=== PATIENT | male | born 1940 | race Caucasian/White ===

== ENCOUNTER 2016-08-18 06:17 | Observation (INO) | payer MEDICARE ==
[~2016-08-18] VITALS: Ht 172.7 cm; Wt 120.5 kg
[2016-08-18 06:25] VITALS: BP 157/80; PULSE 83; RESP 17; O2SAT 96
--- NOTE | 2016-08-18 06:28 | ED.REPORT ---
HPI-URI / Cough / Cold Date of Service Aug 18, 2016 ED Provider: Alton Vences MD 76 y/o male with a hx of A-fib (on Warfarin), HTN and hyperlipidemia presents to the ED via EMS complaining of raspy cough, onset two days ago. The pt states it got significantly worse last night. Associated sx include SOB with a coughing episode. He denies change in appetite, lower extremity edema and hx of pneumonia or other lung problems. The pt took a cough syrup this morning with no change in his sx. Nursing Notes Stated Complaint: RUNNY NOSE,COUGH Chief Complaint: Respiratory Complaints Nursing Notes Reviewed: Yes (Cartilix, meds not reconciled) Allergies: Uncoded Allergies: BEE STINGS (Allergy, Severe, eyes swell shut, 08/18/16) General Time Seen by MD: 06:17 Chief Complaint Cough, non-productive Hx Obtained From: Patient Arrived By: Ambulance Onset Occurred: 2 days ago Symptom Duration: Since onset Severity: Current: No pain currently Severity: Maximum: No pain Recent Healthcare: No recent doctor visit Similar Sx Previous: No Past Medical History Past Medical History Notes: PCP: Dr. Madyson Rae, Lora Ellis Past Medical History atrial fibrillation (on Warfarin) Reports: Hyperlipidemia, Hypertension Past Surgical History Knee replacement Reports: Tonsillectomy Smoking History Former Smoker Social History Alcohol Use: "Social" Ambulatory Status Independent Review of Systems Denies: change in appetite Respiratory: Reports: Non-productive cough (raspy cough), Shortness of breath Complete sys rev & neg: except as marked. Cardiovascular: Denies: Edema Physical Exam Initial Vital Signs Vital Signs (First) Date Time Temp Pulse Resp B/P Pulse Ox O2 Delivery O2 Flow Rate FiO2 08/18/16 06:25 39.0 83 17 157/80 96 Room Air Initial VS: Reviewed, Unavailable (none on chart, ordered), Vital signs abnormal (fever) Head / Eyes: Atraumatic, Normocephalic Neck: Supple, Non-tender, Full range of motion Cardiovascular: Regular rate & rhythm, Heart sounds normal, Intact distal pulses Abdomen / GI: Soft, Non-tender Extremities: Vascular intact, Neuro intact, No tenderness Skin: Warm, Dry, No cyanosis Neurologic: Alert, Oriented, Nonfocal General/Constitutional: Awake, Alert, No acute distress, Well appearing, Cooperative, Not toxic appearing ENT: Atraumatic, Pharynx NL Respiratory / Chest: Atraumatic, Breath sounds = bilat, No rales, No wheezing Diffuse scattered rhonchi. Cardiovascular: Heart rate NL, Regular rhythm, Heart sounds NL, No gallop, No murmurs, No rubs Chronic trace edema at the ankles. Interpretation & Diagnostics Lab Results Interpretation Result Diagram: 08/18/16 0635 08/18/16 0635 Test 08/18/16 06:35 08/18/16 07:18 08/18/16 08:19 White Blood Count 11.4th/mm3 (3.8-10.1) Red Blood Count 5.62mil/mm3 (4.40-5.80) Hemoglobin 16.3g/dL (13.8-17.2) Hematocrit 48.5% (41.0-50.0) Mean Corpuscular Volume 86.3fL (81-100) Mean Corpuscular Hemoglobin 29.0pg (27.0-35.0) Mean Corpuscular Hemoglobin Concent 33.6% (32.0-37.0) Red Cell Distribution Width 15.9% (12.3-15.4) Platelet Count 180bil/L (150-400) Neutrophils (%) (Auto) 78.0% (40-74) Lymphocytes (%) (Auto) 9.7% (14-46) Monocytes (%) (Auto) 9.2% (4-12) Eosinophils (%) (Auto) 2.6% (0-5) Basophils (%) (Auto) 0.2% (0-3) Sodium Level 136mEq/L (134-144) Potassium Level 4.3mEq/L (3.5-5.2) Chloride Level 99mEq/L (97-108) Carbon Dioxide Level 22mmol/L (18-29) Blood Urea Nitrogen 18mg/dL (8-27) Creatinine 0.80mg/dL (0.76-1.27) Estimat Glomerular Filtration Rate 100mL/min (>59) Glucose Level 120mg/dL (60-99) Calcium Level 9.5mg/dL (8.5-10.1) Total Bilirubin 0.8mg/dL (0.0-1.2) Aspartate Amino Transf (AST/SGOT) 25U/L (0-50) Alanine Aminotransferase (ALT/SGPT) 25U/L (0-44) Alkaline Phosphatase 73U/L (25-160) Troponin T 0.010ug/L (0.0-0.011) Pro-B-Type Natriuretic Peptide 807.0pg/mL (0-486) Total Protein 7.3g/dL (6.4-8.4) Albumin 4.2g/dL (3.4-5.0) Prothrombin Time 52.2sec (8.1-12.5) Prothromb Time International Ratio 4.73ratio Urine Color Yellow (YELLOW) Urine Appearance Hazy (CLEAR,HAZY) Urine pH 6.5 (5.0-8.0) Urine Specific [place] 1.015 (1.003-1.035) Urine Protein Tracemg/dL (NEG,TRACE) Urine Glucose (UA) Negativemg/dL (NEGATIVE) Urine Ketones Negativemg/dL (NEGATIVE) Urine Occult Blood Small (NEGATIVE) Urine Nitrite Negative (NEGATIVE) Urine Bilirubin Negative (NEGATIVE) Urine Urobilinogen Normalmg/dL (NORMAL) Urine Leukocyte Esterase Negative (NEGATIVE) Urine RBC 0-2/hpf (0-2) Urine WBC 0-5/hpf (0-5) Urine Epithelial Cells Occasional/hpf (NONE-MOD) Urine Crystals None seen (NONE SEEN) Urine Hyaline Casts None/lpf (NONE) Urine Granular Casts None seen (NONE SEEN) Urine Waxy Casts None seen (NONE SEEN) Urine Red Blood Cell Casts None seen (NONE SEEN) Urine White Blood Cell Casts None seen (NONE SEEN) Urine Mucus None seen (None Seen) Urine Trichomonas None seen (NONE SEEN) Urine Yeast None (NONE SEEN) Urinalysis Comment None Urine Culture Reflexed Not indicated Lab Results Interpretation: CBC positive leukocytosis CMP normal BNP marginally elevated Supratherapeutic INR UA pending Blood culture pending Lactic acid ECG Interpretation ECG Interpretation: Rate controlled A-fib. Rate 79. Q waves inferiorly No acute ischemic changes Time: 06:30 Interpreted by: ED physician X-Ray Chest Interpretation Chest Xray Interpretation: Result: Pneumonia View: Portable, 1 view Interpretation / Wet Read by: Wet read ED physician Re-Eval/Medical Decision Med Decision/Clinical Course This is a pleasant 76-year-old male reports he felt poorly yesterday, then last evening developed fevers, body chills, and a terrible cough with some mild shortness of breath. Given the severity of symptoms and weakness, he called 911 and was transported. On arrival he is febrile, but not tachycardic, hypoxic , or respiratory distress. He does have a cough, and scattered rhonchi. He has trace edema that the lower extremities which he reports is chronic. He does have a chronic history of atrial fibrillation and is on warfarin. CXR reveals a pneumonia, but reveals moderate leukocytosis, and also reveals he is not supratherapeutic on his INR. Blood cultures are pending. The patient received ceftriaxone and azithromycin for community acquired pneumonia. He also received Tylenol, gentle fluids. On reexamination he appears fairly well-he is not tachycardic or hypoxic, so I discussed the possibility of discharge and outpatient treatment, however the patient reports he just feels really lousy, he does not feel comfortable being discharged home. Given his age, comorbidities, over anticoagulation, it is reasonable for him to be admitted for inpatient treatment. This point he has no signs of hemorrhage, and his warfarin will be held Source of Hx: Old records, EMS Re-Evaluation/Progress : Time of Eval: 08:02 Patient Status: Mild relief Re-Evaluation/Progress Note: Rechecked pt. Discussed lab results, imaging results, diagnosis and plan to admit. Pt understands and agrees with the plan for admission. All questions addressed. Consultation : Referral / Consult Name: Kenji Amaral MD Consulted With: Hospitalist Call Returned at: 09:10 Operations Research Analyst: Will see patient, Agrees with eval, Agrees with plan, Accepts admit Counseled Regarding: Diagnosis, Lab results, Need for admission Discharge & Departure Impression: Primary Impression: Pneumonia Pneumonia type: due to unspecified organism Laterality: right Lung location : lower lobe of lung Qualified Code: J18.1 - Lobar pneumonia, unspecified organism Additional Impression: Supratherapeutic INR Disposition: ADMITTED TO HOSPITAL Discharge Condition All VS Reviewed: Yes Condition: Stable Referrals: OTHER,PHYSICIAN Scribe Attestation Portions of this note were transcribed by Charanjit Honeycutt. I, , personally performed the history, physical exam and medical decision- making;I reviewed and confirmed the accuracy of the information in the transcribed note. Signed by Alvin Bales. 08/18/16 09:09 Alton Vences MD Aug 18, 2016 06:28 Charanjit Honeycutt Aug 18, 2016 07:01
[2016-08-18] MEDS ORDERED: cefTRIAXone Inj 2,000 MG in Dextrose 5% Minibag Plus 50 ML IV ONE (07:30)
[2016-08-18] MEDS ORDERED: Azithromycin Inj 500 MG in Dextrose 5% w/Vial Mate 250 ML IV ONE (07:30)
[2016-08-18 07:40] LABS: BASOPHILS % (AUTO) 0.2 % (0-3); EOSINOPHILS % (AUTO) 2.6 % (0-5); MONOCYTES % (AUTO) 9.2 % (4-12); Mean Corpuscular Volume 86.3 fL (81-100); Platelet Count 180 bil/L (150-400)
[2016-08-18 07:43] VITALS: BP 150/87; PULSE 81; RESP 23; O2SAT 95
[2016-08-18 08:01] LABS: INR 4.73 ratio
[2016-08-18 08:05] LABS: TROPONIN T 0.01 ug/L (0.0-0.011)
--- NOTE | 2016-08-18 08:53 | DRSVH ---
PROCEDURE: X-RAY CHEST, TWO VIEWS ([id number]) INDICATIONS: Fever/SOB TECHNIQUE: 2 views of the chest were acquired. COMPARISON: None. FINDINGS: Surgical changes and devices: None. Lungs and pleura: Developing a infrahilar airspace disease is present bilaterally. No pleural effusi on or pneumothorax is identified. There may be mild pleural thickening on the right. Mediastinum: Mediastinal contours are normal. Heart size is normal. It appears to be mild aortic a therosclerosis. Bones and chest wall: No suspicious bony abnormalities. Mild/moderate degenerative changes of the i amanda spine are noted. Soft tissues appear unremarkable. IMPRESSION: Bilateral infrahilar developing airspace disease is most suggestive of pneumonia. Please correlate clinically. Dictated by: Minh Nuñez M.D. on 08/18/2016 at 8:51 Approved by: Minh Nuñez M.D. on 08/18/2016 at 8:52
[2016-08-18] MEDS ORDERED: Ondansetron 2 mg/mL 2 mL Inj IVPUSH PRN (09:10)
[2016-08-18 09:19] LABS: APPEARANCE,URINE HAZY (CLEAR,HAZY); COLOR,URINE YELLOW (YELLOW); OCCULT BLOOD,URINE SMALL (NEGATIVE); PH,URINE 6.5 (5.0-8.0); UROBILINOGEN,URINE NORMAL (NORMAL)
[2016-08-18 10:00] VITALS: BP 127/70; PULSE 81; RESP 18; O2SAT 95
[2016-08-18] MEDS: cefTRIAXone Inj 2,000 MG in Dextrose 5% Minibag Plus 50 ML IV SCH (11:08)
--- NOTE | 2016-08-18 11:22 | PCM.HPMED ---
Subjective Date of Service Aug 18, 2016 Primary Provider: Admitting Physician: Kenji Amaral MD Primary Care Physician: Lora Francisco Attending Physician: Kenji Amaral MD Chief Complaint: Difficulty breathing, cough, phlegm, chills History of Present Illness: 76-year-old male with atrial fibrillation on Coumadin for 5 years, hypertension , hyperlipidemia presented with 2 days of productive cough, difficulty breathing , chills. Patient was usual state of health until 2 days ago, did not recall any sick contact, no recent travel. Patient had no problem breathing nor cough, had remote history of smoking 40 years ago, can walk more than one block without any breathing problem. Then patient started having mild cough, white phlegm, but the past 2 days, cough and sputum are getting worse more purulent. Last night, patient noticed severe chills and shaking, worsening cough, decided to come to the hospital In the emergency room blood pressure were stable [id number], 83, 17, 96% onRA, febrile to39, CXR showed Bilateral infrahilar developing airspace disease suggestive of PNA. labs showed elevated white blood cells, PCT 0.09. pt received azithromycin and ceftriaxone ROS: Patient denied chest pain, n/v/c/d, rash, CARTY, dizziness, myalgia, arthralgia Allergies Uncoded Allergies: BEE STINGS (Allergy, Severe, eyes swell shut, 08/18/16) PMH As described above in history of present illness Surgical History Left knee replacement Family History No history of CAD Social History Hx Alcohol Use: Yes (socially) Hx Substance Use: No Smoking Status: Former Smoker Additional Information lives alone Exam Vital Signs Vital Sign - Last Date Time Temp Pulse Resp B/P Pulse Ox O2 Delivery O2 Flow Rate FiO2 08/18/16 07:43 81 23 150/87 95 Room Air 08/18/16 06:25 39.0 Exam NAD, comfortably laying down on the bed no JVD, MMM, no LAD RRR, nl s1, s2 no mrg Decreased breathing sounds at bilateral bases, mild wheezing S,ND,NT,normoactive BS+ warm, no edema, pulses 2/2 Lab and Diagnostics Result Diagram: 08/18/16 0635 08/18/16 0635 X-Rays, CTs and MRIs PROCEDURE: X-RAY CHEST, TWO VIEWS ([id number]) INDICATIONS: Fever/SOB TECHNIQUE: 2 views of the chest were acquired. COMPARISON: None. FINDINGS: Surgical changes and devices: None. Lungs and pleura: Developing a infrahilar airspace disease is present bilaterally. No pleural effusion or pneumothorax is identified. There may be mild pleural thickening on the right. Mediastinum: Mediastinal contours are normal. Heart size is normal. It appears to be mild aortic atherosclerosis. Bones and chest wall: No suspicious bony abnormalities. Mild/moderate degenerative changes of the imaged spine are noted. Soft tissues appear unremarkable. IMPRESSION: Bilateral infrahilar developing airspace disease is most suggestive of pneumonia. Please correlate clinically. Dictated by: Minh Nuñez M.D. on 08/18/2016 at 8:51 Approved by: Minh Nuñez M.D. on 08/18/2016 at 8:52 Assessment & Plan Acute, active Productive cough fever, POA, CXR suggestive of PNA, CURB65+1 from age, pt looked well, respiratory status stable on room air. strep Ag/legionella Ag neg -Continue ceftriaxone and azithromycin IV, likely to transtion to oral on d/c -trend fever curve, PCT, wbc -infectious w/u: resp PCR, sputum CX, BCX -O2 supplement prn Chronic, stable afib on AC, INR>4, no bleeding episode ever, will hold Coumadin, telemetry HTN, continue home bp med HLD, continue statin Dispo: Patient is admitted under observation status with expectation that she will be discharged within 24-48 hours, diet:general dvt ppx:HSQ Full code Time spent 65min Kenji Amaral MD Aug 18, 2016 11:22
[2016-08-18] MEDS ORDERED: COLC0.6C3 PO (12:05)
[2016-08-18] MEDS ORDERED: LOSA100T29 PO (12:07)
[2016-08-18] MEDS ORDERED: SIMV80TA4 PO (12:10)
[2016-08-18] MEDS ORDERED: METO25TA99 PO (12:10)
[2016-08-18] MEDS ORDERED: WARF5TAB7 PO (12:10)
[2016-08-18] MEDS ORDERED: ALLO300T2 PO (12:10)
[2016-08-18 15:25] VITALS: BP 163/92; PULSE 77; RESP 24; O2SAT 96
[2016-08-18 17:28] VITALS: PULSE 73
--- NOTE | 2016-08-18 18:21 | NUR ---
Admit to MOC Pt. admitted to unit at 0950 in stable condition. 96% on RA. Denies SOB at this time. Becomes SOB with activity. Lungs coarse with audible wheezes. Mildly febrile with temp of 37.6. Will continue to monitor. Med req and admit questions completed. Pt. placed in droplet precautions r/t diagnosis of rhino virus.
[2016-08-18 20:00] VITALS: BP 149/78; PULSE 68; PULSE 74; RESP 20; O2SAT 96
[2016-08-19 00:37] VITALS: BP 130/80; PULSE 60; RESP 20; O2SAT 97
--- NOTE | 2016-08-19 03:44 | NUR ---
Activity Pt. ambulatory, encouraged SBA for safety, cooperative to staff and care, no discomfort voiced this shift, vitals stable, continues on droplet precaution r/t rhinovirus, on continuous tele monitoring A-fib 70s per conveyor monitor, vitals stable, afebrile, call light within reach, hourly rounds, will continue to monitor.
[2016-08-19 05:40] VITALS: BP 152/90; PULSE 60; RESP 19; O2SAT 100
[2016-08-19 06:03] LABS: BASOPHILS % (AUTO) 0.4 % (0-3); EOSINOPHILS % (AUTO) 6.7 % (0-5); MONOCYTES % (AUTO) 14.2 % (4-12); Mean Corpuscular Hemoglobin 29.1 pg (27.0-35.0); Mean Corpuscular Volume 87.4 fL (81-100); NEUTROPHILS % (AUTO) 56.7 % (40-74); Platelet Count 163 bil/L (150-400)
[2016-08-19 06:29] LABS: Magnesium 1.8 mg/dL (1.6-2.6)
[2016-08-19] MEDS ORDERED: LEVO750T9 PO (07:30)
[2016-08-19 08:19] LABS: INR 1.95 ratio
[2016-08-19] MEDS ORDERED: Azithromycin Inj 500 MG in Dextrose 5% w/Vial Mate 250 ML IV SCH (08:30)
[2016-08-19] MEDS ORDERED: Albuterol 2.5 mg/3 mL Inhalation Solution NEB ONE (08:50)
[2016-08-19] MEDS ORDERED: ALBU18HF INH (08:50)
[2016-08-19] MEDS ORDERED: Albuterol 2.5 mg/3 mL Inhalation Solution NEB PRN (08:50)
[2016-08-19 09:20] VITALS: BP 147/88; PULSE 62; RESP 20; O2SAT 97
[2016-08-19 09:32] VITALS: PULSE 59; RESP 16; O2SAT 98
[2016-08-19 09:54] VITALS: PULSE 70
[2016-08-19] MEDS: cefTRIAXone Inj 2,000 MG in Dextrose 5% Minibag Plus 50 ML IV SCH (10:58)
--- NOTE | 2016-08-19 11:10 | NUR ---
Social Work: Initial Assessment D: Per EMR review, pt is a 76 year old male admitted for pneumonia. Pt is Medicare with AARP supplement; pt has no LTC insurance or VA benefits. PCP is through the [facility]. NOK is Taj Mcfarlane, son, . Advance directives requested by LAB SUPPORT TECH for chart. No RA score entered. LAB SUPPORT TECH met with pt and son at bedside. Sw role and contact info provided. See initial assessment- discharge planning introduced. Pt lives in a single story senior group home home in [place]. Pt is I with ADLs at baseline, uses no DME and continues to drive. Pt has a history of HH through [facility] after a knee replacement. Pt has never required skilled rehab. Pt and son express no concerns about discharge home when medically stable; pt's son will transport and assist pt post discharge. Pt has been ambulating I during admission. A: Pt who is I at baseline. P: Anticipate pt to discharge home via POV and no sw needs once medically stable; LAB SUPPORT TECH to continue to follow if needs arise. ZAFAR Jo Addendum: 08/19/16 at 1114 by AMANDEEP GUZMÁN Amended: Links added.
[2016-08-19 12:40] VITALS: BP 153/87; PULSE 59; O2SAT 97
--- NOTE | 2016-08-19 13:11 | PCM.DIMED ---
Discharge Instructions Date of Service Aug 19, 2016 Dates of Hospitalization Aug 18, 2016 at 09:16 Discharge Diagnosis Discharge Diagnosis bronchitis with Rhinovirus infection, probable superimposed community acquired pneumonia. Medication Instructions Additional med instructions Please continue to take Levofloxacin 750mg daily for 8more days, Please use albuterol inhaler every 2-4hours as needed if you feel shortness or breath Diet Discharge Diet: No restrictions Activity Discharge Activity: No restrictions Call your provider Call your provider for: Shortness of breath Patient Instructions Patient Instructions You were hospitalized with productive cough, suggestive of pneumonia. You were found to have viral infection. chest xray also suggested bacterial pneumonia. You were treated with antibiotics, responded well. please follow medicine instruction as above and follow up with your doctor in 2weeks Follow-up plan Please follow up with your doctor in 2weeks Follow-up with PCP in: 2 weeks Kenji Amaral MD Aug 19, 2016 10:32
--- NOTE | 2016-08-19 14:24 | NUR ---
Case Management: Medicare PHIPPS and Medicare D brochure presented to patient with explanation. Signed PHIPPS at [id number], original to patient's chart - copy to patient. Melina Barbosa RN
--- NOTE | 2016-08-19 14:36 | NUR ---
Discharge Reviewed DC instructions with patient and son. Answered all questions, stated understanding. all belongings taken. Scripts sent in packet. Taken in w/ch to private vehicle to home.
--- NOTE | 2016-08-21 13:24 | PCM.DC.MED ---
Discharge Summary Date of Service Aug 19, 2016 Dates of Hospitalization Date of Hospital Admission Aug 18, 2016 at 09:16 Date of Discharge: Aug 19, 2016 Providers: Admitting Physician: Raj Renee MD Primary Care Physician: Lora Francisco Attending Physician: Raj Renee MD Diagnosis at Time of Discharge Diagnosis at Time of Discharge Bronchitis with Rhinovirus infection, probable superimposed community acquired pneumonia. Procedures XRay, CTs & MRIs PROCEDURE: X-RAY CHEST, TWO VIEWS ([id number]) INDICATIONS: Fever/SOB TECHNIQUE: 2 views of the chest were acquired. COMPARISON: None. FINDINGS: Surgical changes and devices: None. Lungs and pleura: Developing a infrahilar airspace disease is present bilaterally. No pleural effusion or pneumothorax is identified. There may be mild pleural thickening on the right. Mediastinum: Mediastinal contours are normal. Heart size is normal. It appears to be mild aortic atherosclerosis. Bones and chest wall: No suspicious bony abnormalities. Mild/moderate degenerative changes of the imaged spine are noted. Soft tissues appear unremarkable. IMPRESSION: Bilateral infrahilar developing airspace disease is most suggestive of pneumonia. Please correlate clinically. Dictated by: Minh Nuñez M.D. on 08/18/2016 at 8:51 Approved by: Minh Nuñez M.D. on 08/18/2016 at 8:52 Brief History HPI obtained on 08/18 76-year-old male with atrial fibrillation on Coumadin for 5 years, hypertension , hyperlipidemia presented with 2 days of productive cough, difficulty breathing , chills. Patient was usual state of health until 2 days ago, did not recall any sick contact, no recent travel. Patient had no problem breathing nor cough, had remote history of smoking 40 years ago, can walk more than one block without any breathing problem. Then patient started having mild cough, white phlegm, but the past 2 days, cough and sputum are getting worse more purulent. Last night, patient noticed severe chills and shaking, worsening cough, decided to come to the hospital In the emergency room blood pressure were stable [id number], 83, 17, 96% onRA, febrile to39, CXR showed Bilateral infrahilar developing airspace disease suggestive of PNA. labs showed elevated white blood cells, PCT 0.09. pt received azithromycin and ceftriaxone ROS: Patient denied chest pain, n/v/c/d, rash, CARTY, dizziness, myalgia, arthralgia Hospital Course Acute dx Bronchitis with Rhinovirus infection, probable superimposed community acquired pneumonia. Productive cough fever, CXR suggestive of PNA, CURB65+1 from age, pt was not septic, looked well, respiratory status stable on room air. strep Ag/legionella Ag neg. BCX ngtd. resp PCR showed Rhino virus. pt was empirically started on ceftriaxone and azithromycin IV, switched to oral Levaquin on d/c. Since pt showed some bronchospasm, albuterol inh was given as well. Chronic dx afib on AC, INR>4, held Coumadin, INR 1.95 on d/c, resumed Coumadin HTN, continued home BP med HLD, continued statin Exam Vital Signs (Last) Date Time Temp Pulse Resp B/P Pulse Ox O2 Delivery O2 Flow Rate FiO2 08/19/16 12:40 36.8 59 153/87 97 Room Air 08/19/16 09:32 16 Exam NAD, comfortably laying down on the bed no JVD, MMM, no LAD RRR, nl s1, s2 no mrg Decreased breathing sounds at bilateral bases, mild wheezing S,ND,NT,normoactive BS+ warm, no edema, pulses 2/2 Test 08/18/16 06:35 08/18/16 07:18 08/18/16 07:35 08/18/16 08:19 Troponin T 0.010ug/L (0.0-0.011) Pro-B-Type Natriuretic Peptide 807.0pg/mL (0-486) Lactic Acid Level 1.7mmol/L (0.4-2.0) Procalcitonin 0.09ng/mL (0.00-0.08) Urine Legionella pneumophilia Ag Negative (Negative) Urine Color Yellow (YELLOW) Urine Appearance Hazy (CLEAR,HAZY) Urine pH 6.5 (5.0-8.0) Urine Specific [place] 1.015 (1.003-1.035) Urine Protein Tracemg/dL (NEG,TRACE) Urine Glucose (UA) Negativemg/dL (NEGATIVE) Urine Ketones Negativemg/dL (NEGATIVE) Urine Occult Blood Small (NEGATIVE) Urine Nitrite Negative (NEGATIVE) Urine Bilirubin Negative (NEGATIVE) Urine Urobilinogen Normalmg/dL (NORMAL) Urine Leukocyte Esterase Negative (NEGATIVE) Urine RBC 0-2/hpf (0-2) Urine WBC 0-5/hpf (0-5) Urine Epithelial Cells Occasional/hpf (NONE-MOD) Urine Crystals None seen (NONE SEEN) Urine Bacteria None/hpf (NONE-FEW) Urine Hyaline Casts None/lpf (NONE) Urine Granular Casts None seen (NONE SEEN) Urine Waxy Casts None seen (NONE SEEN) Urine Red Blood Cell Casts None seen (NONE SEEN) Urine White Blood Cell Casts None seen (NONE SEEN) Urine Mucus None seen (None Seen) Urine Trichomonas None seen (NONE SEEN) Urine Yeast None (NONE SEEN) Urinalysis Comment None Urine Culture Reflexed Not indicated Test 08/19/16 05:25 08/19/16 07:40 White Blood Count 7.0th/mm3 (3.8-10.1) Red Blood Count 4.99mil/mm3 (4.40-5.80) Hemoglobin 14.5g/dL (13.8-17.2) Hematocrit 43.6% (41.0-50.0) Mean Corpuscular Volume 87.4fL (81-100) Mean Corpuscular Hemoglobin 29.1pg (27.0-35.0) Mean Corpuscular Hemoglobin Concent 33.3% (32.0-37.0) Red Cell Distribution Width 16.0% (12.3-15.4) Platelet Count 163bil/L (150-400) Neutrophils (%) (Auto) 56.7% (40-74) Lymphocytes (%) (Auto) 21.7% (14-46) Monocytes (%) (Auto) 14.2% (4-12) Eosinophils (%) (Auto) 6.7% (0-5) Basophils (%) (Auto) 0.4% (0-3) Sodium Level 139mEq/L (134-144) Potassium Level 4.1mEq/L (3.5-5.2) Chloride Level 101mEq/L (97-108) Carbon Dioxide Level 26mmol/L (18-29) Blood Urea Nitrogen 15mg/dL (8-27) Creatinine 0.71mg/dL (0.76-1.27) Estimat Glomerular Filtration Rate 115mL/min (>59) Glucose Level 103mg/dL (60-99) Calcium Level 9.0mg/dL (8.5-10.1) Phosphorus Level 3.0mg/dL (2.5-4.9) Magnesium Level 1.8mg/dL (1.6-2.6) Total Bilirubin 0.5mg/dL (0.0-1.2) Aspartate Amino Transf (AST/SGOT) 21U/L (0-50) Alanine Aminotransferase (ALT/SGPT) 20U/L (0-44) Alkaline Phosphatase 56U/L (25-160) Total Protein 5.8g/dL (6.4-8.4) Albumin 3.7g/dL (3.4-5.0) Prothrombin Time 21.1sec (8.1-12.5) Prothromb Time International Ratio 1.95ratio Discharge Medications Discharge Medications Allopurinol (Allopurinol) 300 Mg Tablet 300 MG PO DAILY (Reported) Levofloxacin (Levaquin) 750 Mg Tablet 750 MG PO DAILY Prescribed by: RAJ RENEE MD Losartan Potassium (Losartan Potassium) 100 Mg Tablet 100 MG PO DAILY (Reported ) Metoprolol Succinate ER (Metoprolol Succinate ER) 25 Mg Tab.er.24h 25 MG PO DAILY (Reported) Simvastatin (Simvastatin) 80 Mg Tablet 80 MG PO HS (Reported) Warfarin Sodium (Warfarin Sodium) 5 Mg Tablet 5 MG PO DAILY (Reported) As needed Albuterol Sulfate (Ventolin HFA Inhaler) 200 Puff/18 Gm Inhaler 1 PUFF INH Q4 PRN PRN For Wheezing Prescribed by: RAJ RENEE MD Colchicine (Colchicine) 0.6 Mg Capsule 0.6 MG PO PRN For gout attack (Reported) Additional med instructions Please continue to take Levofloxacin 750mg daily for 8more days, Please use albuterol inhaler every 2-4hours as needed if you feel shortness or breath Followup Plan Disposition: home Follow-up plan Please follow up with your doctor in 2weeks Discharge Diet: No restrictions Discharge Activity: No restrictions Patient Instructions You were hospitalized with productive cough, suggestive of pneumonia. You were found to have viral infection. chest xray also suggested bacterial pneumonia. You were treated with antibiotics, responded well. please follow medicine instruction as above and follow up with your doctor in 2weeks Follow-up with PCP in: 2 weeks Time spent 65min Raj Renee MD Aug 19, 2016 16:54
== END 2016-08-19 14:15 | disposition home or self-care (01) ==
LOC: SED 06:17 → MOC 09:16 → INTOOBSV 09:16 → MOC 10:02
PROVIDERS: ADMIT Internal Medicine; ATTEND Internal Medicine
DX: J20.6 Acute bronchitis due to rhinovirus (principal); I48.91 Unspecified atrial fibrillation; R79.1 Abnormal coagulation profile; E78.5 Hyperlipidemia, unspecified; I10 Essential (primary) hypertension; Z79.01 Long term (current) use of anticoagulants; Z87.891 Personal history of nicotine dependence
CPT/HCPCS: 36415; 71020; 80053; 81000; 83605; 83735; 83880; 84100; 84145; 84484; 85025; 85610; 86403; 87040; 87070; 87205; 87449; 87633; 93005; 94664; 96365; 96366; 96367; 99285; G0378; J0456; J0696; J7613

== ENCOUNTER 2016-09-03 02:33 | Inpatient (IN) | payer MEDICARE ==
[2016-09-03] VITALS (8 sets, daily range): BP systolic 106–147; BP diastolic 54–90; PULSE 64–83; RESP 16–19; O2SAT 93–98
[~2016-09-03] VITALS: Ht 170.2 cm; Wt 122.6 kg
[~2016-09-03 02:33] MED LIST: ALBU18HF INH; ALLO300T2 PO; COLC0.6C3 PO; LEVO750T9 PO; LOSA100T29 PO; METO25TA99 PO; SIMV80TA4 PO; WARF5TAB7 PO
--- NOTE | 2016-09-03 02:37 | ED.REPORT ---
HPI-General Illness Date of Service Sep 03, 2016 ED Provider: Dr. Donohue 76 y/o male with a hx of A-fib (on Warfarin) and HTN presents to the ED via EMS complaining of right knee pain and swelling post a ground level fall just prior to arrival. The pt states he was walking to the bathroom when he "just went down ". The pt did not hit his head or lose consciousness. He also denies vomiting, nausea, chest pain, shortness of breath and abdominal pain. Nursing Notes Stated Complaint: GLF/R KNEE PAIN Chief Complaint: Extremity Trauma Nursing Notes Reviewed: Yes Allergies: Uncoded Allergies: BEE STINGS (Allergy, Severe, eyes swell shut, 08/18/16) Scheduled Allopurinol (Allopurinol) 300 Mg Tablet 300 MG PO DAILY Levofloxacin (Levaquin) 750 Mg Tablet 750 MG PO DAILY Metoprolol Succinate ER (Metoprolol Succinate ER) 25 Mg Tab.er.24h 25 MG PO DAILY Simvastatin (Simvastatin) 80 Mg Tablet 80 MG PO HS Warfarin Sodium (Warfarin Sodium) 5 Mg Tablet 5 MG PO DAILY Scheduled PRN Albuterol Sulfate (Ventolin HFA Inhaler) 200 Puff/18 Gm Inhaler 1 PUFF INH Q4 PRN PRN For Wheezing Colchicine (Colchicine) 0.6 Mg Capsule 0.6 MG PO PRN For gout attack General Time Seen by MD: 02:36 Chief Complaint Other (right knee pain) Hx Obtained From: Patient Arrived By: Ambulance Sudden in Onset?: Yes Onset Occurred: Just prior to arrival Symptom Duration: Since onset Caused by: Fall on ground Location: : Knee right Quality: Painful Radiation: : Does not radiate Severity: Current: Severe Severity: Maximum: Severe Recent Healthcare: Recent doctor visit Similar Sx Previous: No Past Medical History Past Medical History Notes: PCP: Ainsley Segura Past Medical History On Warfarin atrial fibrillation Hypertension Hyperlipidemia Past Surgical History Knee replacement Tonsillectomy Smoking History Former Smoker Social History Alcohol Use: "Social" Ambulatory Status Independent Review of Systems Full Review of Systems Respiratory: Denies: Shortness of breath Cardiovascular: Denies: Chest pain GI: Denies: Abdominal pain, Nausea, Vomiting Musculoskeletal: Reports: Extremity pain (right knee), Extremity swelling ( right knee) Neurologic: Denies: Change LOC Complete sys rev & neg: except as marked. Physical Exam Vital Signs Initial VS: Reviewed Head / Eyes: Atraumatic, Normocephalic, PERRL Neck: Supple, Non-tender, Full range of motion Respiratory: Breath sounds normal, Clear to auscultation, No respiratory distress Cardiovascular: Regular rate & rhythm, Heart sounds normal, Intact distal pulses Abdomen / GI: Soft, Non-tender Skin: Warm, Dry, No cyanosis Neurologic: Alert, Oriented, Nonfocal General/Constitutional: Awake, Alert, Cooperative Appearance / Presentation: Positive: Obese Upper Extremities Upper Extremity / MS: Atraumatic, Full range of motion, No swelling, No erythema, No deformity, Neurologic intact, Vascular intact Lower Extremity / Pelvis / MS: No erythema, Neurologic intact, Vascular intact Right Knee: Positive: Joint effusion present, Swelling present... (Severe), Tenderness present... (Severe, to minimum movement) Floating knee cap. Interpretation & Diagnostics Exam: CT right femur without contrast Conclusion: Comminuted fracture involving the mid-to distal diaphysis of the femur. Right knee joint osteoarthritis. Knee joint effusion. Signed by Dr. Jesu Horowitz 09/03/16 05:36 Lab Results Interpretation Test 09/03/16 03:35 09/03/16 03:55 White Blood Count 17.7th/mm3 (3.8-10.1) Red Blood Count 5.44mil/mm3 (4.40-5.80) Mean Corpuscular Volume 85.5fL (81-100) Mean Corpuscular Hemoglobin 29.4pg (27.0-35.0) Mean Corpuscular Hemoglobin Concent 34.4% (32.0-37.0) Red Cell Distribution Width 15.4% (12.3-15.4) Platelet Count 252bil/L (150-400) Neutrophils (%) (Auto) 78.2% (40-74) Lymphocytes (%) (Auto) 14.7% (14-46) Monocytes (%) (Auto) 4.8% (4-12) Eosinophils (%) (Auto) 1.5% (0-5) Basophils (%) (Auto) 0.2% (0-3) Sodium Level 141mEq/L (134-144) Potassium Level 4.3mEq/L (3.5-5.2) Chloride Level 98mEq/L (97-108) Carbon Dioxide Level 22mmol/L (18-29) Blood Urea Nitrogen 23mg/dL (8-27) Creatinine 1.02mg/dL (0.76-1.27) Estimat Glomerular Filtration Rate 76mL/min (>59) Glucose Level 102mg/dL (60-99) Calcium Level 9.3mg/dL (8.5-10.1) Magnesium Level 1.9mg/dL (1.6-2.6) Total Bilirubin 0.3mg/dL (0.0-1.2) Aspartate Amino Transf (AST/SGOT) 32U/L (0-50) Alanine Aminotransferase (ALT/SGPT) 33U/L (0-44) Alkaline Phosphatase 68U/L (25-160) Troponin T 0.010ug/L (0.0-0.011) Total Protein 6.8g/dL (6.4-8.4) Albumin 4.2g/dL (3.4-5.0) Alcohols 129mg/dL (0-10) Hold Sherman Top Tube Received (Received) ECG Interpretation ECG Interpretation: Atrial fibrillation. Rate 69 Left axis deviation. Left anterior fascicular block. Non-specific STT wave changes diffusely. Time: 03:38 Interpreted by: ED physician X-Ray Chest Interpretation Chest Xray Interpretation: Normal View: Portable, 1 view Interpretation / Wet Read by: Wet read ED physician X-Ray Interpretation Xray Interpretation: No fracture X-Ray Ordered: Knee right Interpretation / Wet Read by: Wet read ED physician Xray Interpretation: No fracture X-Ray Ordered: Tibia fibula right Interpretation / Wet Read by: Wet read ED physician Xray Interpretation: Right femur diagonal spiral fracture X-Ray Ordered: Femur right Interpretation / Wet Read by: Wet read ED physician Re-Eval/Medical Decision Med Decision/Clinical Course 76-year-old man with atrial fibrillation on Coumadin, presents after mechanical fall without head injury, but with a spiral fracture of his femur. He will require Reversal of his anticoagulation, prior to surgery. He is admitted to the medicine service with consultation orthopedics. Transported in stable condition. Source of Hx: Old records Time of Eval: 03:00 Re-Evaluation/Progress Note: Discussed imaging, diagnosis and plan to admit. The pt understands and agrees. All questions answered. Consultation : Referral / Consult Name: Melanie Carrasquillo DO Consulted With: Hospitalist Call Returned at: 04:20 Neurosurgery Physician: Will see patient, Agrees with eval, Agrees with plan, Accepts admit Counseled Regarding: Diagnosis, Lab results, Need for admission Discharge & Departure Primary Impression: Right femoral fracture Encounter type: initial encounter Femur location: shaft Fracture type: closed Fracture morphology: spiral Fracture alignment: displaced Qualified Code: S72.341A - Displaced spiral fracture of shaft of right femur, initial encounter for closed fracture Additional Impressions: Afib Atrial fibrillation type: chronic Qualified Code: I48.2 - Chronic atrial fibrillation Anticoagulated on warfarin Disposition: ADMITTED TO HOSPITAL Discharge Condition All VS Reviewed: Yes Condition: Stable Referrals: AINSLEY AMEZCUA (PCP) Alvin Attestation Portions of this note were transcribed by Charanjit Honeycutt. Dr.Roberts Gilberto, personally performed the history, physical exam and medical decision- making;I reviewed and confirmed the accuracy of the information in the transcribed note. Signed by Alvin Bales. 09/03/16 05:39 copies to: AINSLEY AMZECUA Christopher W MD Sep 03, 2016 02:36 Charanjit Honeycutt Sep 03, 2016 03:02 Neurosurgery Physician: Will see patient, Agrees with eval, Agrees with plan, Accepts admit Counseled Regarding: Diagnosis, Lab results, Need for admission Discharge & Departure Primary Impression: Right femoral fracture Encounter type: initial encounter Femur location: shaft Fracture type: closed Fracture morphology: spiral Fracture alignment: displaced Qualified Code: S72.341A - Displaced spiral fracture of shaft of right femur, initial encounter for closed fracture Additional Impressions: Afib Atrial fibrillation type: chronic Qualified Code: I48.2 - Chronic atrial fibrillation Anticoagulated on warfarin Disposition: ADMITTED TO HOSPITAL Discharge Condition All VS Reviewed: Yes Referrals: AINSLEY AMEZCUA (PCP) Alvin Attestation Portions of this note were transcribed by Charanjit Honeycutt. Dr.Roberts Gilberto, personally performed the history, physical exam and medical decision- making;I reviewed and confirmed the accuracy of the information in the transcribed note. Signed by Alvin Bales. 09/03/16 05:39 copies to: AINSLEY AMEZCUA Christopher W MD Sep 03, 2016 02:36 Charanjit Honeycutt Sep 03, 2016 03:02
[2016-09-03] MEDS ORDERED: Ondansetron 2 mg/mL 2 mL Inj IVPUSH ONE (03:05)
[2016-09-03] MEDS: HYDROmorphone 1 mg/mL Inj IVPUSH PRN ×6 (03:43→14:50)
[2016-09-03 03:47] LABS: BASOPHILS % (AUTO) 0.2 % (0-3); EOSINOPHILS % (AUTO) 1.5 % (0-5); MONOCYTES % (AUTO) 4.8 % (4-12); Mean Corpuscular Hemoglobin 29.4 pg (27.0-35.0); Mean Corpuscular Volume 85.5 fL (81-100); NEUTROPHILS % (AUTO) 78.2 % (40-74); Platelet Count 252 bil/L (150-400)
[2016-09-03 04:06] LABS: INR 2.74 ratio
[2016-09-03 04:10] LABS: TROPONIN T 0.01 ug/L (0.0-0.011)
[2016-09-03 04:24] LABS: Magnesium 1.9 mg/dL (1.6-2.6)
--- NOTE | 2016-09-03 04:36 | PCM.HPMED ---
Subjective Date of Service Sep 03, 2016 Primary Provider: Admitting Physician: Primary Care Physician: Other,Physician Attending Physician: Admit Status: From the Emergency Department Chief Complaint: Right lower extremity knee pain and swelling after ground-level fall 2 AM this morning History of Present Illness: This is a very pleasant 76 Y/O M with history of A. fib and chronically anticoagulated on Warfarin, history of gout on allopurinol, and HTN presented to the ED via EMS complaining of acute severe right lower extremity knee pain and swelling status post GLF, onset 2 AM this morning just prior to admit in ED. The recent reports he was walking to the bathroom when he fell. He denies having felt dizzy, or lightheaded, at the time. He denies any prior history of falls. Patient states that he just received a dose of pain medication in the ED and his pain is currently a dull 4/10 ache with intermittent throbbing sensation. Patient states the pain can be as severe as 8 out of 10 at its worst. Location patient points to the right lower extremity knee. Associated symptoms include knee swelling. Of note the patient states he does drink 1 glass of wine a day as his drink of choice. However reports that he had 3 shots of vodka yesterday which is not his norm. Patient does not believe he was at anytime inebriated. However his alcohol level in the ED was 129 with normal range being 0-10. He denies any drug use history. Patient states that he lives at home with his son Taj. He denies having ever hit his head or losing consciousness. Denied history of falls, fevers, chills, sweats, shortness of breath, dizziness, headaches, lightheadedness, seizures, fatigue, focal neurological signs, palpitations, vomiting, nausea, chest pain, and abdominal pain. Patient is chronically anticoagulated on warfarin, PT/INR in the ED 29.9/2.74 In the ED: Vital signs were: Temperature 36.5, pulse 64, respiratory rate 16, blood pressure 106/54 with a map of 71, O2 95% room air. CT femur of the right lower extremity pending on admission Chest x-ray: No acute cardiopulmonary neurology Right knee x-ray: Showed right knee condyle fracture X-ray tibia-fibula on the right: showed no fracture Right femur x-ray showed: Right femur displaced fracture Hemogram showed: WBC 17.7, 78.2% PMNs, H/H of 16.0/46.5, otherwise normal hemogram. Chemistry panel showed: Within normal limits Toxicology: Alcohol level was 129 and high (normal 0-10) Troponin was 0.010 and negative EKG showed: Atrial fibrillation. Rate 69, Left axis deviation. Left anterior fascicular block. Non-specific ST/T wave changes diffusely. Review of Systems: A comprehensive review of systems was conducted and was negative except as mentioned in history of present illness. Allergies Uncoded Allergies: BEE STINGS (Allergy, Severe, eyes swell shut, 08/18/16) Home Medications Allopurinol (Allopurinol) 300 Mg Tablet 300 MG PO DAILY Metoprolol Succinate ER (Metoprolol Succinate ER) 25 Mg Tab.er.24h 25 MG PO DAILY Simvastatin (Simvastatin) 80 Mg Tablet 80 MG PO HS Warfarin Sodium (Warfarin Sodium) 5 Mg Tablet 5 MG PO DAILY PRN Colchicine (Colchicine) 0.6 Mg Capsule 0.6 MG PO PRN For gout attack PMH On Warfarin atrial fibrillation Hypertension Hyperlipidemia Gout Surgical History Knee replacement 2012 Tonsillectomy at age 6 Family History Father with hypertension Mother healthy Social History Hx Alcohol Use: Yes Hx Substance Use: No Smoking Status: Former Smoker Exam Vital Signs Vital Sign - Last Date Time Temp Pulse Resp B/P Pulse Ox O2 Delivery O2 Flow Rate FiO2 09/03/16 04:03 72 18 125/72 93 Room Air 09/03/16 02:36 36.5 Exam General: Patient appears obese, wearing oxygen by nasal cannula, Alert and oriented [address] and time, speaking in full sentences however with some degree of word finding during the interview, patient was pleasant, in no acute distress. HEENT: NC/AT, without hassan signs eyes, PERRLA, EOMI, neck, soft supple, no adenopathy, no JVD, no masses, no thyromegaly, throat mucous membranes pink and moist, no erythema, no exudates, no tonsillar swelling, no uvular deviation. She is in moderately poor repair Lungs: CTAB with few crackles in lung bases, no wheezes, no rhonchi, no use of accessory muscles of respiration, good air movement, good respiratory effort. No thoracic cage ecchymoses or tenderness to palpation Heart: Regular rate and rhythm, no murmur, S1-S2 present, no rub, no click, no distant heart sounds, Abdomen: Soft, protuberant, nontender, nondistended, bowel sounds active, no rebound, no guarding, Genitourinary: No CVA tenderness, no suprapubic tenderness, no Sheehan catheter, Extremities: Left upper extremity arm with 3.0 x 2.5 cm ecchymosis, the right upper extremity had a IV placed in the antecubital fossa. Right lower extremity was externally rotated and slightly abducted, the knee had a moderate degree of swelling compared to the left normal knee, left knee with old surgical scar from knee replacement, the right knee was not painful to palpation , pulses equal and symmetric upper/lower extremity bilaterally including radial and dorsalis pedis, no edema except as previously mentioned Neurologic: See neurologically intact, no focal neurological signs, some degree of word finding Skin: Warm dry and intact Psychiatric: mood and affect are congruent and appropriate. Lab and Diagnostics Result Diagram: 09/03/1633409/03/16334 Assessment & Plan 76 y/o male on Warfarin and with a hx of A-fib and HTN presents to the ED via EMS complaining of right knee pain and swelling post a ground level fall just prior to arrival. The pt states he was walking to the bathroom when he "just went down". The pt did not hit his head or lose consciousness. He also denies vomiting, nausea, chest pain, shortness of breath and abdominal pain. #Right lower extremity femur fracture, present on admission, active -Vital signs were: Temperature 36.5, pulse 64, respiratory rate 16, blood pressure 106/54 with a map of 71, O2 95% room air. -CT femur of the right lower extremity has been ordered and is pending -X-ray tibia-fibula on the right: showed no fracture -Right femur x-ray showed: Right femur displaced fracture -Hemogram showed: WBC 17.7, 78.2% PMNs, H/H of 16.0/46.5, otherwise normal hemogram. -Chemistry panel showed: Within normal limits -Toxicology: Blood alcohol 129 -Orthopedic surgery has been consulted and Dr. Mauricio Goel will be seeing the patient. -Patient will be made nothing by mouth for pending procedure -We will start normal saline at 85 mL per hour -We will control pain with IV pain medication -We will warfarin for possible surgical procedure with orthopedics. We will await orthopedics recommendations prior to restarting anticoagulation warfarin on patient. -Patient will be admitted inpatient status -Continuous cardiac monitoring with remote telemetry #Right knee condylar fracture, present on admission, active -Right knee x-ray: Showed right knee condyle fracture #Leukocytosis with left shift, acute, present on admission, active -WBC 17.7, 78.2% PMNs, -Chest x-ray: No acute cardiopulmonary neurology #Acutely elevated blood alcohol level, present on admission, active -Patient was alert and oriented during the interview 3 to self, place and time -Patient had significant word finding difficulties at times during the interview -Chemistry panel showed: Within normal limits -Toxicology: Alcohol level was 129 and high (normal 0-10) -We will monitor patient for withdrawal symptoms, and place patient on CIWA if deemed appropriate by day shift hospitalist # Atrial fibrillation, on Warfarin -Troponins were 0.010 - PT/INR in the ED 29.9/2.74 - We will hold warfarin for now pending procedure - Continue medication Metoprolol Succinate ER 25 Mg Tab.er.24h 25 MG PO DAILY # Hypertension -Metoprolol Succinate ER 25 Mg Tab.er.24h 25 MG PO DAILY # Hyperlipidemia -Simvastatin 80 Mg Tablet 80 MG PO HS #Gout -We will continue Allopurinol 300 Mg Tablet 300 MG PO DAILY -Takes Colchicine 0.6 Mg Capsule 0.6 MG PO PRN For gout attack Disposition: Admitted to in patient service with expected length of stay greater than 2 days, secondary to severity of presenting symptoms, treatment plan, complexity of clinical work up, and risk of adverse events. CODE STATUS: Full code PCP: Lora Ellis DVT PE prophylaxis: SCD's Contact: (Son) Taj Mcfarlane [phone] VTE Prophylaxis: SCDs, Other (patient chronically anticoagulated on warfarin) Resuscitation Status: CPR: Attempt Resuscitation Attending Statement The patient was seen and examined together with house staff on 09/03/2016 and I agree with the history, exam and plan as outlined in the note above. Alexsander Greenberg DO Sep 03, 2016 04:36 Melanie Carrasquillo DO Sep 03, 2016 06:30
[2016-09-03] MEDS ORDERED: 0.9% Sodium Chloride 1,000 ML IV SCH (04:49)
[2016-09-03] MEDS ORDERED: Alum-Mag Hydrox-Simeth 30 mL Suspension PO PRN (04:50)
[2016-09-03] MEDS ORDERED: Polyethylene Glycol (PEG) 17 Gm Powder PO PRN (04:50)
[2016-09-03] MEDS ORDERED: Ondansetron 2 mg/mL 2 mL Inj IVPUSH PRN (04:50)
--- NOTE | 2016-09-03 06:37 | NUR ---
Admit to Room 1003 Patient arrived via [facility] to room 1003 at 0526 accompanied by ED staff. Patient states pain at a 4/10 on pain scale. VSS. Patient oriented to room and call light. Assessment and med reconciliation completed. Call light within reach. Care continues
[2016-09-03] MEDS ORDERED: MeTOProlol XL 25 mg ER24 Tablet PO SCH (08:30)
--- NOTE | 2016-09-03 09:26 | DRSVH ---
PROCEDURE: CT FEMUR RIGHT W/O CONTRAST ([id number]) INDICATIONS: fx into knee joint TECHNIQUE: Noncontrast 3 mm axial sections acquired of the right femur, with coronal and sagittal reformats. Fo r radiation dose reduction, the following was used: automated exposure control, adjustment of mA and /or kV according to patient size. COMPARISON: [facility], CR, XR FEMUR 2VW RT, 09/03/2016, 3:12. FINDINGS: Image quality: Excellent. Bones: There is a spiral fracture of the distal right femoral diaphysis with lateral and posterior di splacement of the distal component. There is also external rotation by approximately 90. No defini te metaphyseal or epiphyseal fracture identified. There is prominent osteophytosis of the visualized right knee. A moderate size right knee joint effusion is demonstrated with a lipohemarthrosis. Soft tissues: No suspicious soft tissue calcifications. There is edema and likely intramuscular juan kya involving the anterior compartment musculature of the thigh distally. Elsewhere, there is mild fatty muscle atrophy likely involving the hamstring muscles. IMPRESSION: 1. Displaced and externally rotated fracture of the distal femoral diaphysis. 2. Small to moderate-sized right knee joint effusion with a lipohemarthrosis. Dictated by: Ashok Pham M.D. on 09/03/2016 at 9:13 Approved by: Ashok Pham M.D. on 09/03/2016 at 9:18
--- NOTE | 2016-09-03 10:49 | DRSVH ---
PROCEDURE: X-RAY RIGHT KNEE, ONE OR TWO VIEWS ([id number]) INDICATIONS: swollen knee TECHNIQUE: 2 views of the knee were acquired. COMPARISON: [facility], CR, XR TIBIA FIBULA 2VW RT, 09/03/2016, 3:12. FINDINGS: Bones: No acute fractures or dislocations. There is mild joint space narrowing in the medial compar tment are mild osteophytosis is present. The visualized tibial shaft demonstrates deformity suggesti ve of an old healed fracture. No suspicious bony lesions. Soft tissues: There is a moderate to large joint effusion. No suspicious soft tissue calcifications. IMPRESSION: 1. Moderate to large right knee joint effusion. 2. Deformity of the tibial shaft compatible with an old healed fracture. Dictated by: Ashok Pham M.D. on 09/03/2016 at 10:40 Approved by: Ashok Pham M.D. on 09/03/2016 at 10:41
[2016-09-03 11:06] LABS: INR 2.93 ratio
--- NOTE | 2016-09-03 11:22 | DRSVH ---
PROCEDURE: X-RAY CHEST ONE VIEW, PORTABLE ([id number]) INDICATIONS: fall, fx femur TECHNIQUE: One view of the chest was acquired. COMPARISON: [facility], CR, XR CHEST 2VW, 08/18/2016, 6:47. FINDINGS: Surgical changes and devices: None. Lungs and pleura: No pleural effusions or pneumothorax. Lungs are clear. Mediastinum: Mediastinal contours appear unchanged. Heart size is normal. Bones and chest wall: No suspicious bony lesions. No displaced fractures. Overlying soft tissues ap pear unremarkable. IMPRESSION: 1. No acute cardiopulmonary disease. Dictated by: Ashok Pham M.D. on 09/03/2016 at 11:14 Approved by: Ashok Pham M.D. on 09/03/2016 at 11:15
--- NOTE | 2016-09-03 11:24 | DRSVH ---
PROCEDURE: X-RAY RIGHT TIBIA/FIBULA, TWO VIEWS ([id number]) INDICATIONS: fall, fx femur TECHNIQUE: 2 views of the tibia and fibula were acquired. COMPARISON: [facility], CT, CT FEMUR RT WO CON, 09/03/2016, 4:48. FINDINGS: Bones: No acute fracture of the tibia or fibula. There is deformity of the tibial shaft consistent with old healed fracture. There is osteophytosis in the knee compatible with mild osteoarthritic danielle nges. A knee joint effusion is partially visualized. Soft tissues: There are scattered vascular calcifications. IMPRESSION: 1. No acute fracture of the tibia or fibula. 2.Old healed tibial shaft fracture demonstrated. Dictated by: Ashok Pham M.D. on 09/03/2016 at 11:15 Approved by: Ashok Pham M.D. on 09/03/2016 at 11:17
--- NOTE | 2016-09-03 11:25 | DRSVH ---
PROCEDURE: X-RAY RIGHT FEMUR, TWO VIEWS ([id number]) INDICATIONS: fall, fx femur TECHNIQUE: 4 views of the femur were acquired. COMPARISON: None. FINDINGS: Bones: There is a spiral fracture of the distal femoral shaft with lateral and anterior displacement of the distal component as well as mild valgus angulation. There is also external rotation. Soft tissues: There is a knee joint effusion and extensive soft tissue swelling in the distal thigh. IMPRESSION: 1. Displaced, rotated, and angulated fracture of the distal femoral shaft. Dictated by: Ashok Pham M.D. on 09/03/2016 at 11:17 Approved by: Ashok Pham M.D. on 09/03/2016 at 11:18
[2016-09-03] MEDS ORDERED: Phytonadione (Vitamin K) per Pharmacy XX ONE (12:35)
[2016-09-03] MEDS ORDERED: 0.9% Sodium Chloride 1,000 ML IV ONE (12:35)
--- NOTE | 2016-09-03 12:47 | PCM.PNMED ---
Subjective Date of Service Sep 03, 2016 Subjective He is seen today to follow-up the right femur fracture, elevated INR and regular alcohol use. His alcohol level on admission was 129. His white blood count is 17.7 with a hemoglobin of 16. INR is 2.74. He is unable to remember how he broke his leg, how much he drank last night, or particularly why he is in the hospital. He is holding his right leg in a frog leg position for unclear reasons. He is tender midshaft femur. For unclear technical reasons I am unable to see the x-rays on the computer system, to better understand the degree of his fracture. Exam Vital Signs Vital Sign - Last Date Time Temp Pulse Resp B/P Pulse Ox O2 Delivery O2 Flow Rate FiO2 09/03/16 09:02 36.7 80 19 125/84 95 Room Air 09/03/16 05:19 3 Exam He is alert and oriented 3, in no apparent distress. His memory appears to be typical for somebody who is recently had a blood alcohol level above 0.12. He is mentally tracking slowly. Heart is regular rate and rhythm without murmur Lungs are clear to auscultation bilaterally Extremities have no ankle edema The right leg/hip is held in a frog leg position. He is tender over the distal midshaft of the femur. IVs and Medications Medications Reviewed: Medications were reviewed in detail Lab and Diagnostics Result Diagram: 09/03/165 09/03/16 033 Assessment & Plan 76 y/o male on Warfarin and with a hx of A-fib and HTN presents to the ED via EMS complaining of right knee pain and swelling post a ground level fall just prior to arrival. The pt states he was walking to the bathroom when he "just went down". The pt did not hit his head or lose consciousness. He also denies vomiting, nausea, chest pain, shortness of breath and abdominal pain. #Right lower extremity femur fracture, present on admission, active -CT femur of the right lower extremity has been done and reviewed by Dr. Goel -X-ray tibia-fibula on the right: showed no fracture -Right femur x-ray showed: Right femur displaced fracture -Hemogram showed: WBC 17.7, 78.2% PMNs, H/H of 16.0/46.5, otherwise normal hemogram. -Chemistry panel showed: Within normal limits -Toxicology: Blood alcohol 129 -Orthopedic surgery has been consulted and discussed with Dr. Mauricio Goel who is working on transferring the patient to [facility] for this challenging apparently compound fracture -Patient will be made nothing by mouth for pending procedure -We will start normal saline at 85 mL per hour, and given a 1 L bolus due to oliguria. His renal function is normal. A bladder scan will also be done. -We will control pain with IV pain medication -We will hold warfarin for possible surgical procedure with orthopedics. We will await orthopedics recommendations prior to restarting anticoagulation warfarin on patient. Recommended vitamin K to be given today. -Patient will be admitted inpatient status, and likely transferred to [facility] today. -Continuous cardiac monitoring with remote telemetry #Right knee condylar fracture, present on admission, active -Right knee x-ray: Showed right knee condyle fracture #Leukocytosis with left shift, acute, present on admission, active -WBC 17.7, 78.2% PMNs, -Chest x-ray: No acute cardiopulmonary neurology #Acutely elevated blood alcohol level, present on admission, active -Patient was alert and oriented during the interview 3 to self, place and time -Patient had significant word finding difficulties at times during the interview -Chemistry panel showed: Within normal limits -Toxicology: Alcohol level was 129 and high (normal 0-10) -We will monitor patient for withdrawal symptoms, and place patient on CIWA. # Atrial fibrillation, on Warfarin -Troponins were 0.010 - PT/INR in the ED 29.9/2.74 - We will hold warfarin for now pending procedure - Continue medication Metoprolol Succinate ER 25 Mg Tab.er.24h 25 MG PO DAILY # Hypertension -Metoprolol Succinate ER 25 Mg Tab.er.24h 25 MG PO DAILY # Hyperlipidemia -Simvastatin 80 Mg Tablet 80 MG PO HS #Gout -We will continue Allopurinol 300 Mg Tablet 300 MG PO DAILY -Takes Colchicine 0.6 Mg Capsule 0.6 MG PO PRN For gout attack Disposition: Admitted to in patient service with expected length of stay greater than 2 days, secondary to severity of presenting symptoms, treatment plan, complexity of clinical work up, and risk of adverse events. CODE STATUS: Full code PCP: Lora Ellis DVT PE prophylaxis: SCD's Contact: (Son) Taj Mcfarlane [phone] VTE Prophylaxis: SCDs, Other (patient chronically anticoagulated on warfarin) VTE Mechanical Devices: Intermittant Pneumatic CD Resuscitation Status: CPR: Attempt Resuscitation Thong Armas MD Sep 03, 2016 10:01
[2016-09-03] MEDS ORDERED: Phytonadione (Adult) 10 mg/1 mL Inj PO ONE (12:50)
--- NOTE | 2016-09-03 13:11 | CONS ---
[address] [address] CONSULTATION REPORT PATIENT: ELBERT ROMERO : 1940 MR#: [id number] ADMIT: 09/03/2016 JOB ID: [id number] ORTHOPEDIC CONSULTATION: CPK CODE: [id number] DATE OF SERVICE: 09/03/2016 CHIEF COMPLAINT: This 76-year-old male had a ground level fall early this morning, sustaining a spiral right distal one-third femoral shaft fracture with possible intracapsular extension the joint. The patient attests to having about three shots of vodka when he fell very early this morning. He got up going to the bathroom and reports he "just went down." There was no obvious loss of consciousness. The patient does live with his son. The patient reports that he does not drink on a daily basis.Recently loss his and has some depression. He does have a history of hypertension and atrial fibrillation. The patient is on chronic long-term Coumadin. Initial INR 2.74. Repeat INR this morning is 2.93. Initially I was not called on this hospital patient from the ER. He was admitted to the hospitalist service about 3 to 4 am CURRENT MEDICATIONS: Current medications include allopurinol. He has no not currently on levothyroxine at this time. Also takes metoprolol, simvastatin and Coumadin. Coumadin is usually 5 mg a day. PAST SURGICAL HISTORY: The patient has had a left total knee replacement in 2011 and a tonsillectomy. He recently had a fall in May and evidently injured his left knee but he now is able to utilize the left knee for ambulation. REVIEW OF SYSTEMS: At this time is acutely positive only for the right leg pain. He also has tendency toward chronic peripheral edema along with his atrial fibrillation. He denies any chest pain, shortness of breath. No blurring of vision. No decreased hearing. No abdominal pain. Does have easy bruising with being on Coumadin. Psychiatric: Does have some depression since he recently lost his . SOCIAL HISTORY: Lives with his son. He does drink but not on a daily basis. Patient was a former smoker. PHYSICAL EXAMINATION: A 122.6 kg male, 170 cm, BMI of 42.3, temperature 36.7, pulse 80, respiration 19, blood pressure 125/84, pulse of 95. He does have atrial fibrillation but is hemodynamically stable. The patient is lying in bed. His right leg is externally rotated. He is also flexed at the knee. Peripheral pulses are intact. He is able to move the foot, and sensory is also intact. The patient has peripheral edema in both lower extremities. Also has a large 3+ right knee joint effusion. After giving the patient some IV Dilaudid I was able to straighten the patient' s leg and place him in a knee immobilizer. Additional xrays taken. The patient has significant knee hemarthrosis and potential ligamentous injury. He has some swelling over the quad muscle medially and possible quad tendon injury. IMAGING: X-rays slightly suboptimal since the x-rays are all taken with the leg rotated. Long spiral fracture of the distal third of the femur. On one view on the knee, it looks like he has an abnormality along the distal portion of the femoral condyle just at the intra-capsular level. This may be due to positioning of the x-ray, but I have concerns that he might also have a fracture that extends down into the intracapsular portion of the joint to also account for the knee effusion. The CT scan indicated there was no intra-articular fracute to the joint but again I am suspicious for anterior cortical defect of the distal femur at the top of the condyle. May also have knee ligament injury. Unable to examine due to the pain in the fracture. CT scan also slightly difficult to read since he has some underlying arthritis. At one area, the fracture may be down to the intracapsular portion of the joint but not actually into the articular surface, and this was over the anterior aspect of the distal femur. The patient also had tib-fib x-rays that show that he had an old midshaft tibial and proximal fibular fracture when he was an adolescent. I did perform two additional xrays of the distal femur once I straightened the leg. The spiral fracture is still shortened as anticipated but at least it is not totally malrotated. LABORATORY TESTING: Shows a white count of 17,700, hemoglobin is 16, hematocrit of 46.5, platelet count 252,000; That was H and H on admission, and repeat this morning at about 10 a.m., hemoglobin 14.7, hematocrit 43.6. His INR on admission was 2.74, but now repeated this morning at 10 am is now 2.93. Some of this may be due to recent alcohol intake. Sodium level is 141, potassium 4.3, chloride 98, CO2 of 22, BUN 23, creatinine 1.02. Random glucose was 102, magnesium level 1.9, total bilirubin 0.3, AST SGOT 32, ALT SGPT 33, alkaline phosphatase 68. Troponin level normal at 0.01. Total protein is 5.5, albumin 4.2, alcohol level 129. ASSESSMENT: 1. A long significantly displaced spiral fracture of the right distal third of the femur. Possible extension of the fracture to the intracapsular portion of the joint but not into the articular surface of the joint. Can also not rule out some associated ligamentous or quad muscle/tendion injury to the knee. He has an associated 3 + knee effusion. 2. Hypertension. 3. Chronic peripheral edema. 4. Calcifications in the peripheral vessels consistent with some peripheral vascular disease. 5. History of gout. 6. Chronic atrial fibrillation on anticoagulation with Coumadin. 7. Some history of excess alcohol use but not on a daily basis. PLAN: The patient is currently on telemetry and appears to be stable. I have contacted [facility] to see if they could potentially be able to help with this somewhat more complex patient and significant femoral fracture that may enter the intracapsular portion of the joint but not into the articular surface. He is a very relatively large individual with chronic peripheral edema and peripheral vascular disease. I have concerns as to the severity of the knee effusion and potential difficulty with reduction. I explained to the patient this can be fixed with an IM bob antigrade or retrograde or plate and screws. [facility] has the additional surgical manpower to be able to do this table top rather than with a fracture table and is probably preferable for treatment of this fracture. I am awaiting contact from [facility] to see if they would accept the patient in transfer. I have contacted the family that are present as well as the patient, and if [facility] does accept the patient, they are in agreement they would be fine with a transfer. The patient's Coumadin has been held. Discussed with the hospitalist and asked that they give him some Vitamin K and hold the coumadin. He took his last dose on the evening of 09/02/16. The patient has been kept n.p.o., but again at this time his INR is too high to proceed with surgery and needs some correction. At the very least, we will see about giving the patient some vitamin K to help improve the INR. I did explain to him that at the time of surgery sometimes they can also be also given fresh frozen plasma or platelets but that is usually not given until just before surgery to optimize the treatment. Usually we require the INR to be lower before proceeding with any surgery. Again, will await information from [facility]. I had concerns that he was not voiding well and perhaps just voiding off the top of his bladder. He has been being hydrated. I told the hospitalist I was ordering a bladder scan and he has almost 500 cc residual. I had them place a rfaser catheter to monitor I & O status.. Patient was more comfortable. Notes and xrays sent to [facility]. director of respiratory therapy has accepted the transfer, Now awaiting approval from [facility] as consulting service and medical service as accepting service. ADDENDUM. I just spoke to Dr. Hawkins from the orthopedic service at [facility]. He has graciously accepted the patient in orthopedic service for transfer. He has indicated the patient should be sent to the ER and he will arrange for medical consultation. I have ordered the Vitamin K and this should be given prior to transfer . he will go by [facility]. CC: [facility] CC: [facility] -clinics orthopedics CC: Kassandra Boudreaux
--- NOTE | 2016-09-03 13:44 | DRSVH ---
PROCEDURE: X-RAY RIGHT FEMUR, TWO VIEWS ([id number]) INDICATIONS: R femur fx TECHNIQUE: 2 views of the distal femur were acquired. COMPARISON: None. FINDINGS: Bones: There is a fracture of the distal femoral shaft redemonstrated with lateral and mild anterior displacement which appears decreased from the prior study. There is also external rotation and mild valgus angulation. Soft tissues: There is a right knee joint effusion as well as extensive soft tissue swelling. IMPRESSION: 1. Right femoral shaft fracture redemonstrated as described. Dictated by: Ashok Pham M.D. on 09/03/2016 at 13:38 Approved by: Ashok Pham M.D. on 09/03/2016 at 13:42
--- NOTE | 2016-09-03 14:31 | PCM.DC.MED ---
Discharge Summary Date of Service Sep 03, 2016 Dates of Hospitalization Date of Hospital Admission Sep 03, 2016 at 05:10 Date of Discharge: Sep 03, 2016 Providers: Admitting Physician: Thong Armas MD Primary Care Physician: Other,Physician Attending Physician: Mauricio Goel MD Diagnosis at Time of Discharge Diagnosis at Time of Discharge #Right lower extremity femur fracture #Right knee condylar fracture #Leukocytosis with left shift, acute #Acutely elevated blood alcohol level # Atrial fibrillation, on Warfarin # Hypertension # Hyperlipidemia #Gout Consultations [address] [address] CONSULTATION REPORT PATIENT: ELBERT ROMERO : 1940 MR#: [id number] ADMIT: 09/03/2016 JOB ID: [id number] ORTHOPEDIC CONSULTATION: [facility] CODE: [id number] DATE OF SERVICE: 09/03/2016 CHIEF COMPLAINT: This 76-year-old male had a ground level fall early this morning, sustaining a spiral right distal one-third femoral shaft fracture with possible intracapsular extension the joint. The patient attests to having about three shots of vodka when he fell very early this morning. He got up going to the bathroom and reports he "just went down." There was no obvious loss of consciousness. The patient does live with his son. The patient reports that he does not drink on a daily basis.Recently loss his and has some depression. He does have a history of hypertension and atrial fibrillation. The patient is on chronic long-term Coumadin. Initial INR 2.74. Repeat INR this morning is 2.93. Initially I was not called on this hospital patient from the ER. He was admitted to the hospitalist service about 3 to 4 am CURRENT MEDICATIONS: Current medications include allopurinol. He has no not currently on levothyroxine at this time. Also takes metoprolol, simvastatin and Coumadin. Coumadin is usually 5 mg a day. PAST SURGICAL HISTORY: The patient has had a left total knee replacement in 2011 and a tonsillectomy. He recently had a fall in May and evidently injured his left knee but he now is able to utilize the left knee for ambulation. REVIEW OF SYSTEMS: At this time is acutely positive only for the right leg pain. He also has tendency toward chronic peripheral edema along with his atrial fibrillation. He denies any chest pain, shortness of breath. No blurring of vision. No decreased hearing. No abdominal pain. Does have easy bruising with being on Coumadin. Psychiatric: Does have some depression since he recently lost his . SOCIAL HISTORY: Lives with his son. He does drink but not on a daily basis. Patient was a former smoker. PHYSICAL EXAMINATION: A 122.6 kg male, 170 cm, BMI of 42.3, temperature 36.7, pulse 80, respiration 19, blood pressure 125/84, pulse of 95. He does have atrial fibrillation but is hemodynamically stable. The patient is lying in bed. His right leg is externally rotated. He is also flexed at the knee. Peripheral pulses are intact. He is able to move the foot, and sensory is also intact. The patient has peripheral edema in both lower extremities. Also has a large 3+ right knee joint effusion. After giving the patient some IV Dilaudid I was able to straighten the patient' s leg and place him in a knee immobilizer. Additional xrays taken. The patient has significant knee hemarthrosis and potential ligamentous injury. He has some swelling over the quad muscle medially and possible quad tendon injury. IMAGING: X-rays slightly suboptimal since the x-rays are all taken with the leg rotated. Long spiral fracture of the distal third of the femur. On one view on the knee, it looks like he has an abnormality along the distal portion of the femoral condyle just at the intra-capsular level. This may be due to positioning of the x-ray, but I have concerns that he might also have a fracture that extends down into the intracapsular portion of the joint to also account for the knee effusion. The CT scan indicated there was no intra-articular fracute to the joint but again I am suspicious for anterior cortical defect of the distal femur at the top of the condyle. May also have knee ligament injury. Unable to examine due to the pain in the fracture. CT scan also slightly difficult to read since he has some underlying arthritis. At one area, the fracture may be down to the intracapsular portion of the joint but not actually into the articular surface, and this was over the anterior aspect of the distal femur. The patient also had tib-fib x-rays that show that he had an old midshaft tibial and proximal fibular fracture when he was an adolescent. I did perform two additional xrays of the distal femur once I straightened the leg. The spiral fracture is still shortened as anticipated but at least it is not totally malrotated. LABORATORY TESTING: Shows a white count of 17,700, hemoglobin is 16, hematocrit of 46.5, platelet count 252,000; That was H and H on admission, and repeat this morning at about 10 a.m., hemoglobin 14.7, hematocrit 43.6. His INR on admission was 2.74, but now repeated this morning at 10 am is now 2.93. Some of this may be due to recent alcohol intake. Sodium level is 141, potassium 4.3, chloride 98, CO2 of 22, BUN 23, creatinine 1.02. Random glucose was 102, magnesium level 1.9, total bilirubin 0.3, AST SGOT 32, ALT SGPT 33, alkaline phosphatase 68. Troponin level normal at 0.01. Total protein is 5.5, albumin 4.2, alcohol level 129. ASSESSMENT: 1. A long significantly displaced spiral fracture of the right distal third of the femur. Possible extension of the fracture to the intracapsular portion of the joint but not into the articular surface of the joint. Can also not rule out some associated ligamentous or quad muscle/tendion injury to the knee. He has an associated 3 + knee effusion. 2. Hypertension. 3. Chronic peripheral edema. 4. Calcifications in the peripheral vessels consistent with some peripheral vascular disease. 5. History of gout. 6. Chronic atrial fibrillation on anticoagulation with Coumadin. 7. Some history of excess alcohol use but not on a daily basis. PLAN: The patient is currently on telemetry and appears to be stable. I have contacted [facility] to see if they could potentially be able to help with this somewhat more complex patient and significant femoral fracture that may enter the intracapsular portion of the joint but not into the articular surface. He is a very relatively large individual with chronic peripheral edema and peripheral vascular disease. I have concerns as to the severity of the knee effusion and potential difficulty with reduction. I explained to the patient this can be fixed with an IM bob antigrade or retrograde or plate and screws. [facility] has the additional surgical manpower to be able to do this table top rather than with a fracture table and is probably preferable for treatment of this fracture. I am awaiting contact from [facility] to see if they would accept the patient in transfer. I have contacted the family that are present as well as the patient, and if [facility] does accept the patient, they are in agreement they would be fine with a transfer. The patient's Coumadin has been held. Discussed with the hospitalist and asked that they give him some Vitamin K and hold the coumadin. He took his last dose on the evening of 09/02/16. The patient has been kept n.p.o., but again at this time his INR is too high to proceed with surgery and needs some correction. At the very least, we will see about giving the patient some vitamin K to help improve the INR. I did explain to him that at the time of surgery sometimes they can also be also given fresh frozen plasma or platelets but that is usually not given until just before surgery to optimize the treatment. Usually we require the INR to be lower before proceeding with any surgery. Again, will await information from [facility]. I had concerns that he was not voiding well and perhaps just voiding off the top of his bladder. He has been being hydrated. I told the hospitalist I was ordering a bladder scan and he has almost 500 cc residual. I had them place a fraser catheter to monitor I & O status.. Patient was more comfortable. Notes and xrays sent to [facility]. media services director has accepted the transfer, Now awaiting approval from [facility] as consulting service and medical service as accepting service. ADDENDUM. I just spoke to Dr. Hawkins from the orthopedic service at [facility]. He has graciously accepted the patient in orthopedic service for transfer. He has indicated the patient should be sent to the ER and he will arrange for medical consultation. I have ordered the Vitamin K and this should be given prior to transfer . he will go by [facility]. CC: [facility] CC: [facility] CC: Kassandra Boudreaux Jean Marie MD 09/03/16 1143 <Electronically signed by Mauricio Goel MD> 09/03/16 1355 Procedures XRay, CTs & MRIs [facility] Diagnostic Imaging Department [place], [place] [id number] Patient Name: ELBERT ROMERO MR#: [id number] [place] [facility] [place] Phys: Theo Donohue MD Date of Service: 09/03/16 0423 PROCEDURE: CT FEMUR RIGHT W/O CONTRAST ([id number]) INDICATIONS: fx into knee joint TECHNIQUE: Noncontrast 3 mm axial sections acquired of the right femur, with coronal and sagittal reformats. For radiation dose reduction, the following was used: automated exposure control, adjustment of mA and/or kV according to patient size. COMPARISON: [facility], CR, XR FEMUR 2VW RT, 09/03/2016, 3:12. FINDINGS: Image quality: Excellent. Bones: There is a spiral fracture of the distal right femoral diaphysis with lateral and posterior displacement of the distal component. There is also external rotation by approximately 90. No definite metaphyseal or epiphyseal fracture identified. There is prominent osteophytosis of the visualized right knee. A moderate size right knee joint effusion is demonstrated with a lipohemarthrosis. Soft tissues: No suspicious soft tissue calcifications. There is edema and likely intramuscular hematoma involving the anterior compartment musculature of the thigh distally. Elsewhere, there is mild fatty muscle atrophy likely involving the hamstring muscles. IMPRESSION: 1. Displaced and externally rotated fracture of the distal femoral diaphysis. 2. Small to moderate-sized right knee joint effusion with a lipohemarthrosis. Dictated by: Ashok Pham M.D. on 09/03/2016 at 9:13 Approved by: Ashok Pham M.D. on 09/03/2016 at 9:18 Brief History This is a very pleasant 76 Y/O M with history of A. fib and chronically anticoagulated on Warfarin, history of gout on allopurinol, and HTN presented to the ED via EMS complaining of acute severe right lower extremity knee pain and swelling status post GLF, onset 2 AM this morning just prior to admit in ED. The recent reports he was walking to the bathroom when he fell. He denies having felt dizzy, or lightheaded, at the time. He denies any prior history of falls. Patient states that he just received a dose of pain medication in the ED and his pain is currently a dull 4/10 ache with intermittent throbbing sensation. Patient states the pain can be as severe as 8 out of 10 at its worst. Location patient points to the right lower extremity knee. Associated symptoms include knee swelling. Of note the patient states he does drink 1 glass of wine a day as his drink of choice. However reports that he had 3 shots of vodka yesterday which is not his norm. Patient does not believe he was at anytime inebriated. However his alcohol level in the ED was 129 with normal range being 0-10. He denies any drug use history. Patient states that he lives at home with his son Taj. He denies having ever hit his head or losing consciousness. Denied history of falls, fevers, chills, sweats, shortness of breath, dizziness, headaches, lightheadedness, seizures, fatigue, focal neurological signs, palpitations, vomiting, nausea, chest pain, and abdominal pain. Patient is chronically anticoagulated on warfarin, PT/INR in the ED 29.9/2.74 In the ED: Vital signs were: Temperature 36.5, pulse 64, respiratory rate 16, blood pressure 106/54 with a map of 71, O2 95% room air. CT femur of the right lower extremity pending on admission Chest x-ray: No acute cardiopulmonary neurology Right knee x-ray: Showed right knee condyle fracture X-ray tibia-fibula on the right: showed no fracture Right femur x-ray showed: Right femur displaced fracture Hemogram showed: WBC 17.7, 78.2% PMNs, H/H of 16.0/46.5, otherwise normal hemogram. Chemistry panel showed: Within normal limits Toxicology: Alcohol level was 129 and high (normal 0-10) Troponin was 0.010 and negative EKG showed: Atrial fibrillation. Rate 69, Left axis deviation. Left anterior fascicular block. Non-specific ST/T wave changes diffusely. Hospital Course #Right lower extremity femur fracture -CT femur of the right lower extremity has been done and reviewed by Dr. Goel -Right femur x-ray showed: Right femur displaced fracture -Hemogram showed: WBC 17.7, 78.2% PMNs, H/H of 16.0/46.5, otherwise normal hemogram. -Toxicology: Blood alcohol 129 -Orthopedic surgery has been consulted and discussed with Dr. Mauricio Goel who has transferred the patient to [facility] for this challenging apparently multi- fracture injury. -Patient has been nothing by mouth for pending procedure -He has been on normal saline at 85 mL per hour, and given a 1 L bolus due to oliguria. His renal function is normal. A bladder scan showed 500 ml PVR so a catheter was placed. -We will control pain with IV pain medication -I called Pharmacy to ask them to dose vitamin K as the EMR no longer allows direct physician orders for that Coumadin reversing agent. -Patient will be transferred to [facility] today. -Continuous cardiac monitoring with remote telemetry #Right knee condylar fracture, present on admission, active -Right knee x-ray: Showed right knee condyle fracture #Leukocytosis with left shift, acute, present on admission, active -WBC 17.7, 78.2% PMNs, -Chest x-ray: No acute cardiopulmonary neurology #Acutely elevated blood alcohol level, present on admission, active -Patient was alert and oriented during the interview 3 to self, place and time -Patient had significant word finding difficulties at times during the interview -Chemistry panel showed: Within normal limits -Toxicology: Alcohol level was 129 and high (normal 0-10) -We placed patient on CIWA. # Atrial fibrillation, on Warfarin -Troponins were 0.010 - PT/INR in the ED 29.9/2.74 - We will hold warfarin for now pending procedure - Continue medication Metoprolol Succinate ER 25 Mg Tab.er.24h 25 MG PO DAILY # Hypertension -Metoprolol Succinate ER 25 Mg Tab.er.24h 25 MG PO DAILY # Hyperlipidemia -Simvastatin 80 Mg Tablet 80 MG PO HS #Gout -We will continue Allopurinol 300 Mg Tablet 300 MG PO DAILY -Takes Colchicine 0.6 Mg Capsule 0.6 MG PO PRN For gout attack CODE STATUS: Full code PCP: Lora Ellis DVT PE prophylaxis: SCD's Contact: (Son) Taj Romero [phone] Exam Vital Signs (Last) Date Time Temp Pulse Resp B/P Pulse Ox O2 Delivery O2 Flow Rate FiO2 09/03/16 09:02 36.7 80 19 125/84 95 Room Air 09/03/16 05:19 3 Exam See todays progress note. Test 09/03/16 03:35 09/03/16 03:55 09/03/16 10:40 White Blood Count 17.7th/mm3 (3.8-10.1) Red Blood Count 5.44mil/mm3 (4.40-5.80) Mean Corpuscular Volume 85.5fL (81-100) Mean Corpuscular Hemoglobin 29.4pg (27.0-35.0) Mean Corpuscular Hemoglobin Concent 34.4% (32.0-37.0) Red Cell Distribution Width 15.4% (12.3-15.4) Platelet Count 252bil/L (150-400) Neutrophils (%) (Auto) 78.2% (40-74) Lymphocytes (%) (Auto) 14.7% (14-46) Monocytes (%) (Auto) 4.8% (4-12) Eosinophils (%) (Auto) 1.5% (0-5) Basophils (%) (Auto) 0.2% (0-3) Sodium Level 141mEq/L (134-144) Potassium Level 4.3mEq/L (3.5-5.2) Chloride Level 98mEq/L (97-108) Carbon Dioxide Level 22mmol/L (18-29) Blood Urea Nitrogen 23mg/dL (8-27) Creatinine 1.02mg/dL (0.76-1.27) Estimat Glomerular Filtration Rate 76mL/min (>59) Glucose Level 102mg/dL (60-99) Calcium Level 9.3mg/dL (8.5-10.1) Magnesium Level 1.9mg/dL (1.6-2.6) Total Bilirubin 0.3mg/dL (0.0-1.2) Aspartate Amino Transf (AST/SGOT) 32U/L (0-50) Alanine Aminotransferase (ALT/SGPT) 33U/L (0-44) Alkaline Phosphatase 68U/L (25-160) Troponin T 0.010ug/L (0.0-0.011) Total Protein 6.8g/dL (6.4-8.4) Albumin 4.2g/dL (3.4-5.0) Alcohols 129mg/dL (0-10) Hold Sherman Top Tube Received (Received) Hemoglobin 14.7g/dL (13.8-17.2) Hematocrit 43.6% (41.0-50.0) Prothrombin Time 32.0sec (8.1-12.5) Prothromb Time International Ratio 2.93ratio Discharge Medications Discharge Medications Allopurinol (Allopurinol) 300 Mg Tablet 300 MG PO DAILY (Reported) Levofloxacin (Levaquin) 750 Mg Tablet 750 MG PO DAILY Prescribed by: RAJ RENEE MD Metoprolol Succinate ER (Metoprolol Succinate ER) 25 Mg Tab.er.24h 25 MG PO DAILY (Reported) Simvastatin (Simvastatin) 80 Mg Tablet 80 MG PO HS (Reported) Warfarin Sodium (Warfarin Sodium) 5 Mg Tablet 5 MG PO DAILY (Reported) As needed Albuterol Sulfate (Ventolin HFA Inhaler) 200 Puff/18 Gm Inhaler 1 PUFF INH Q4 PRN PRN For Wheezing Prescribed by: RAJ RENEE MD Colchicine (Colchicine) 0.6 Mg Capsule 0.6 MG PO PRN For gout attack (Reported) Followup Plan Disposition: Hold Coumadin. Time spent 40 minutes Thong Armas MD Sep 03, 2016 14:31
--- NOTE | 2016-09-03 15:19 | NUR ---
DISCHARGE: Ortho consult this am. Decision to transfer to [facility]. Pt placed in immobilizer. Family aware of transfer. Pt transferred by [facility] at approx 1515.
== END 2016-09-03 15:00 | disposition short-term general hospital (02) | DRG 534 ==
LOC: SED 02:33 → OSC 05:10
PROVIDERS: ADMIT Family Medicine; ATTEND Family Medicine
DX: S72.341A Displaced spiral fracture of shaft of right femur, initial encounter for closed fracture (principal); S72.431 Displaced fracture of medial condyle of right femur; W01.0XXA Fall on same level from slipping, tripping and stumbling without subsequent striking against object, initial encounter; I73.9 Peripheral vascular disease, unspecified; I48.2 Chronic atrial fibrillation; I10 Essential (primary) hypertension; M10.9 Gout, unspecified; Z79.01 Long term (current) use of anticoagulants; Y92.002 Bathroom of unspecified non-institutional (private) residence as the place of occurrence of the external cause